=== PATIENT | male | born 1990 | race Caucasian/White ===

== ENCOUNTER 2022-01-02 14:48 | Emergency (ER) | payer MEDICAID, OTHER ==
--- NOTE | 2022-01-02 17:03 | NUR ---
Pt was called for triage, but was nowhere to be found.
--- NOTE | 2022-01-02 20:00 | NUR ---
PATIENT WAS CALLED TO BE RIAGED BUT WAS NOT PRESENT IN THE WAITING ROOM OR OUTSIDE OF ER.
--- NOTE | 2022-01-02 21:00 | NUR ---
PATIENT WAS CALLED TO BE TRIAGED BUT WAS NOT PRESENT. PATIENT WAS NOT TRIAGED OR SEEN BY [facility].
== END 2022-01-02 21:00 | disposition left against medical advice (07) ==
LOC: ER 14:48
DX: Z53.21 Procedure and treatment not carried out due to patient leaving prior to being seen by health care provider (principal)